=== PATIENT | female | born 1965 | race Caucasian/White ===

== ENCOUNTER 2017-09-16 09:44 | Emergency (ER) | payer MEDICAID ==
[2017-09-16 10:04] VITALS: BP 116/65
--- NOTE | 2017-09-16 10:37 | ED Physician Documentation ---
PD HPI HEENT FB - Chief complaint Chief Complaint: General - History obtained from History obtained from: Patient - History of Present Illness Timing - onset: Today Location: Left ear Associated symptoms: No: Fever, Congestion Similar symptoms before: Has not had sx before Recently seen: Not recently seen - Additional information Additional information: 51-year-old female that wears hearing aids has had the tip of the hearing aid stuck in her ear on the left side. She was not able to remove this herself and felt that she was pushing it further in so she has come to the emergency department. Review of Systems Constitutional: denies: Fever, Chills Eyes: denies: Decreased vision Ears: reports: Foreign body Nose: denies: Rhinorrhea / runny nose, Congestion Throat: denies: Sore throat Respiratory: denies: Cough PD PAST MEDICAL HISTORY - Past Medical History Past Medical History: No - Past Surgical History Past Surgical History: No - Present Medications Home Medications: Ambulatory Orders Medication Instructions Recorded Confirmed Gabapentin 100 mg PO 09/16/17 - Allergies Allergies/Adverse Reactions: Allergies Allergy/AdvReac Type Severity Reaction Status Date / Time No Known Drug Allergies Allergy Verified 09/16/17 10:02 - Social History Does the pt smoke?: No Smoking Status: Never smoker Does the pt drink ETOH?: Yes Substance Use and Type: Marijuana PD ED PE NORMAL - Vitals Vital signs reviewed: Yes (normal ) - General General: Alert and oriented X 3, No acute distress, Well developed/nourished - HEENT HEENT: Atraumatic, PERRL, EOMI, Ears normal, Other (There is a tiny rubber tip to the hearing aid in the left canal and this is removed with magnification and foreceps. ) - Neck Neck: Supple, no meningeal sign, No bony TTP - Respiratory Respiratory: No respiratory distress - Derm Derm: Normal color, Warm and dry, No rash - Extremities Extremities: No deformity, No edema - Neuro Neuro: No motor deficit, No sensory deficit Eye Opening: Spontaneous Motor: Obeys Commands Verbal: Oriented GCS Score: 15 - Psych Psych: Normal mood, Normal affect Results - Vitals Vitals: Vital Signs - 24 hr 09/16/17 10:00 Temperature 36.8 C Heart Rate 84 Respiratory 18 Rate Blood Pressure 116/65 O2 Saturation 98 Oxygen O2 Source Room air Procedures - FB removal FB location: Ear Removal method: Foreceps FB removal aftercare: No complications, Patient tolerated well, Removed successfully PD MEDICAL DECISION MAKING - ED course Complexity details: considered differential, d/w patient ED course: 51 y/o female with FB in the ear is removed. Departure - Departure Disposition: 01 Home, Self Care Clinical Impression: Foreign body in left ear Qualifiers: Encounter type: initial encounter Qualified Code(s): T16.2XXA - Foreign body in left ear, initial encounter Instructions: ED Foreign Body Ear Canal [facility] [Provider Group]
== END 2017-09-16 10:41 | disposition home or self-care (01) ==
LOC: ED 09:44
DX: T16.2XXA Foreign body in left ear, initial encounter (principal); X58.XXXA Exposure to other specified factors, initial encounter
CPT/HCPCS: 69200; 99282

== ENCOUNTER 2022-12-08 11:47 | Outpatient (CLI) | payer BC ==
--- NOTE | 2022-12-08 17:58 | Ultrasound Report ---
PROCEDURE: Ankle Brachial Index INDICATIONS: PVD W/RAYNAUDS TECHNIQUE: Ankle-brachial indices were obtained bilaterally and recorded. COMPARISONS: None. FINDINGS: Right ankle brachial index (DELONTE): 1.0 Left ankle brachial index (DELONTE): 1.0 Healing potential: Ankle pressures >55 mm Hg in non-diabetics and >80 mm Hg in diabetics are likely to achieve primary h ealing of ischemic foot ulcers. Toe pressures >30 mm Hg are likely to achieve primary healing of ischemic foot ulcers, toe or transme tatarsal amputations. IMPRESSION: Normal bilateral ankle-brachial indices. Reviewed by: Haroon Hilliard MD on 12/08/2022 5:57 PM PDT Approved by: Haroon Hilliard MD on 12/08/2022 5:57 PM PDT Station ID: [id number]
== END 2022-12-08 11:48 | disposition home or self-care (01) ==
LOC: DI 11:47
PROVIDERS: ATTEND Naturopath
DX: R20.8 Other disturbances of skin sensation (principal); I73.9 Peripheral vascular disease, unspecified
CPT/HCPCS: 93922

== ENCOUNTER 2022-12-08 11:48 | Outpatient (CLI) | payer BC ==
--- NOTE | 2022-12-08 20:28 | Ultrasound Report ---
PROCEDURE: Carotid Doppler Complete INDICATIONS: SCREENING FOR CARDIOVASCULAR DISORDERS TECHNIQUE: Color and pulse Doppler interrogation was performed of both carotid systems, with image documentation and velocity measurements. COMPARISON: None. FINDINGS: Right side: Brachial blood pressure: 153/74 mm Hg. Common carotid artery peak systolic velocity: 80 cm/sec. Internal carotid artery peak systolic velocity: 142 cm/sec. Internal carotid artery end diastolic velocity: 60 cm/sec. External carotid artery peak systolic velocity: 74 cm/sec. ICA/CCA peak systolic ratio: 1.7 . Love scale imaging description: Mild atherosclerotic plaque. Percent internal carotid artery stenosis: 50-69%. Vertebral artery: Flow direction is antegrade. Left side: Brachial blood pressure: 144/75 mm Hg. Common carotid artery peak systolic velocity: 70 cm/sec. Internal carotid artery peak systolic velocity: 116 cm/sec. Internal carotid artery end diastolic velocity: 60 cm/sec. External carotid artery peak systolic velocity: 68 cm/sec. ICA/CCA peak systolic ratio: 1.6 . Love scale imaging description: No significant atherosclerotic plaque. Percent internal carotid artery stenosis: No hemodynamically significant stenosis. Vertebral artery: Flow direction is antegrade. IMPRESSION: 1. In the right internal carotid artery, there is 50-69 percent stenosis based on peak systolic veloc ity criteria. 2. In the left internal carotid artery, there is no hemodynamically significant stenosis based on pea k systolic velocity criteria. 3. Antegrade blood flow within the right vertebral artery. 4. Antegrade blood flow within the left vertebral artery. The estimate of stenosis included in the report of the imaging study was calculated using the [facility]-end orsed standards of carotid artery stenosis. Reviewed by: Cheikh Sandoval MD on 12/08/2022 8:27 PM PDT Approved by: Cheikh Sandoval MD on 12/08/2022 8:27 PM PDT Station ID: [id number]
== END 2022-12-08 11:49 | disposition home or self-care (01) ==
LOC: DI 11:48
PROVIDERS: ATTEND Naturopath
DX: Z13.6 Encounter for screening for cardiovascular disorders (principal); I65.21 Occlusion and stenosis of right carotid artery; R20.8 Other disturbances of skin sensation; I73.9 Peripheral vascular disease, unspecified
CPT/HCPCS: 93880; 93922

== ENCOUNTER 2022-12-14 10:12 | Outpatient (CLI) | payer BC ==
[2022-12-14 16:00] LABS: RHEUMATOID FACTOR NEGATIVE (Negative)
[2022-12-14 16:02] LABS: CRP - C-REACTIVE PROTEIN 0.9 mg/dL (<0.5); URIC ACID 3.9 mg/dL (2.3-6.6)
[2022-12-14 16:27] LABS: FERRITIN 46.4 ng/mL (11.0-306.8)
[2022-12-16 15:09] LABS: A/G RATIO 1.2 (0.7-1.7); ALBUMIN 3.7 g/dL (2.9-4.4); ALPHA-1-GLOBULIN 0.2 g/dL (0.0-0.4); ALPHA-2-GLOBULIN 0.7 g/dL (0.4-1.0); GAMMA GLOBULIN 1.3 g/dL (0.4-1.8); GLOBULIN TOTAL 3.2 g/dL (2.2-3.9); IMMUNOGLOBULIN A (IGA) 232 mg/dL (87-352); IMMUNOGLOBULIN G (IGG) 1163 mg/dL (586-1602); IMMUNOGLOBULIN M (IGM) 181 mg/dL (26-217); M-SPIKE Not Observed g/dL (Not Observed); PROTEIN TOTAL 6.9 g/dL (6.0-8.5)
[2022-12-17 02:08] LABS: METHYLMALONIC ACID SERUM 80 nmol/L (0-378)
== END 2022-12-14 10:13 | disposition home or self-care (01) ==
LOC: LAB.S 10:12
PROVIDERS: ATTEND Internal Medicine
DX: G62.9 Polyneuropathy, unspecified (principal)
CPT/HCPCS: 36415; 82607; 82728; 82784; 83090; 83540; 83921; 84155; 84165; 84207; 84466; 84550; 86140; 86200; 86334; 86430

== ENCOUNTER 2022-12-15 06:00 | Outpatient (CLI) | payer BC | END 2022-12-15 23:59 | disposition home or self-care (01) | LOC: LAB 06:00 | PROVIDERS: ATTEND Internal Medicine | DX: G62.9 Polyneuropathy, unspecified (principal) | CPT/HCPCS: 81599; 84156; 84166 ==

== ENCOUNTER 2023-01-17 12:56 | Outpatient (CLI) | payer BC ==
--- NOTE | 2023-01-17 18:30 | XRAY Report ---
PROCEDURE: Chest 2 View X-Ray INDICATIONS: DYSPNEA TECHNIQUE: 2 views of the chest were obtained. COMPARISON: None. FINDINGS: Surgical changes and devices: None. Lungs and pleura: There is hyperinflation and chronic interstitial changes without focal infiltrate, pneumothorax or pleural effusion. Mediastinum: Mediastinal contours appear normal. Heart size is normal. Bones and chest wall: No suspicious bony lesions. Overlying soft tissues appear unremarkable. IMPRESSION: Hyperinflation and chronic interstitial changes Reviewed by: Chapo Awan MD on 01/17/2023 5:29 PM AKDT Approved by: Chapo Awan MD on 01/17/2023 5:29 PM AKDT Station ID: [id number]
== END 2023-01-17 12:57 | disposition home or self-care (01) ==
LOC: DI 12:56
PROVIDERS: ATTEND Internal Medicine
DX: R06.09 Other forms of dyspnea (principal)

== ENCOUNTER 2023-02-07 10:04 | Outpatient (CLI) | payer BC ==
--- NOTE | 2023-02-07 12:34 | CT Report ---
PROCEDURE: CHEST WO INDICATIONS: EXERTIONAL DYSPNEA, VASCULAR DISEASE TECHNIQUE: Noncontrast 1mm axial images were acquired from the pulmonary apices to the posterior costophrenic an gles. Axial 5 mm soft tissue kernel reconstructions were performed as well as 8 mm axial MIP and cor onal and sagittal 5 mm reformations. For radiation dose reduction, the following was used: automate d exposure control, adjustment of mA and/or kV according to patient size. COMPARISON: X-ray 01/17/2023 FINDINGS: Image quality: Excellent. Lungs and pleura: No consolidation. No pleural effusions. No pneumothorax. Biapical scarring. Bronch iectasis of the right middle lobe, with regions of mucus impaction. Additional mucus impaction of the upper lobe subsegmental bronchi, without bronchiectasis. No fibrosis. No honeycombing. No definite a ir trapping. Mediastinum: Heart size is normal. No pericardial effusion. No large vessel abnormality. No mediastin al adenopathy by size criteria. Chest wall and lower neck: No thyroid nodule which requires sonographic follow up. No axillary or sup raclavicular adenopathy by size. Bones: No aggressive osseous abnormality. Upper Abdomen: Unremarkable. IMPRESSION: Bronchiectasis of the right middle lobe, with regions of mucus impaction. Additional subsegmental muc us impaction of the upper lobes. Findings are suggestive of infectious or inflammatory bronchiolitis. Non-tuberculosis mycobacterium is also a consideration if chronic. No evidence of interstitial lung disease. Reviewed by: Damien Solis on 02/07/2023 12:33 PM PDT Approved by: Damien Solis on 02/07/2023 12:33 PM PDT Station ID: [id number]
== END 2023-02-07 10:05 | disposition home or self-care (01) ==
LOC: DI 10:04
PROVIDERS: ATTEND Internal Medicine
DX: J47.9 Bronchiectasis, uncomplicated (principal); J98.09 Other diseases of bronchus, not elsewhere classified

== ENCOUNTER 2023-03-06 14:01 | Outpatient (CLI) | payer BC ==
--- NOTE | 2023-03-14 09:26 | Mammography Report ---
BILATERAL DIGITAL SCREENING MAMMOGRAM 3D/2D WITH EXAGGERATED CC: 03/06/2023 CLINICAL: Routine screening. No prior exams were available for comparison. Both breasts are heterogeneously dense, which may obscure small masses (category c / 51-75% glandular tissue). There is a benign lymph node in the left breast. There also is a biopsy clip in the left breast. No significant masses, calcifications, or other findings are seen in either breast. IMPRESSION: BENIGN There is no mammographic evidence of malignancy. A 1 year screening mammogram is recommended. Based on the Tyrer Cuzick model (a risk assessment model) the patients lifetime risk is 9.5% and her 10 year risk is 3.2%. According to the ACR, ACS, and NCCN guidelines, an annual breast MRI exam rand g with mammogram is recommended if the patients lifetime risk is 20% or greater. This exam was interpreted at Station ID: [id number]. NOTE: For mammograms, a report in lay terms will be sent to the patient. Approximately 15% of breast malignancies will not be visualized mammographically. In the management of a palpable breast mass, a negative mammogram must not discourage biopsy of a clinically suspicious lesion. Electronically Signed By: John mojica/penrad:03/14/2023 08:06:28 ACR BI-RADS Category 2: Benign Finding(s) 3342F PARENCHYMAL PATTERN: (D) - The breast(s) demonstrate(s) heterogeneously dense fibroglandular [place]. BI-RADS CATEGORY: (2) - 2 Mammogram [id number] 1 year screening LATERALITY: (B)
== END 2023-03-06 14:02 | disposition home or self-care (01) ==
LOC: DI.S 14:01
DX: Z12.31 Encounter for screening mammogram for malignant neoplasm of breast (principal); R92.333 Mammographic heterogeneous density, bilateral breasts

== ENCOUNTER 2023-03-20 13:41 | Outpatient (CLI) | payer BC ==
[2023-03-20] MEDS: ALBUTEROL 1 PUFF INH STA (18:24)
[2023-03-20 18:30] LABS: MAGNESIUM 2.1 mg/dL (1.7-2.3); PHOSPHORUS 4.1 mg/dL (2.5-5.0)
== END 2023-03-20 13:42 | disposition home or self-care (01) ==
LOC: RT 13:41
PROVIDERS: ATTEND Internal Medicine
DX: J47.9 Bronchiectasis, uncomplicated (principal); R91.8 Other nonspecific abnormal finding of lung field; R06.09 Other forms of dyspnea; R29.898 Other symptoms and signs involving the musculoskeletal system; R53.83 Other fatigue; R20.2 Paresthesia of skin
CPT/HCPCS: 36415; 81599; 82085; 82550; 83735; 84100; 94060; 94727; 94729

== ENCOUNTER 2023-06-07 17:02 | Outpatient (CLI) | payer OTHER ==
--- NOTE | 2023-06-08 08:41 | Ultrasound Report ---
PROCEDURE: Carotid Doppler Complete INDICATIONS: INTERNAL CAROTID STENOSIS TECHNIQUE: Color and pulse Doppler interrogation was performed of both carotid systems, with image documentation and velocity measurements. COMPARISON: 12/08/2022 FINDINGS: Right side: Brachial blood pressure: 135/63 mm Hg. Common carotid artery peak systolic velocity: 81 cm/sec. Internal carotid artery peak systolic velocity: 105 cm/sec. Internal carotid artery end diastolic velocity: 42 cm/sec. External carotid artery peak systolic velocity: 60 cm/sec. ICA/CCA peak systolic ratio: 1.3 . Love scale imaging description: Mild atherosclerotic plaques Percent internal carotid artery stenosis: Less than 50 percent stenosis. Vertebral artery: Flow direction is antegrade. Left side: Brachial blood pressure: 126/47 mm Hg. Common carotid artery peak systolic velocity: 83 cm/sec. Internal carotid artery peak systolic velocity: 68 cm/sec. Internal carotid artery end diastolic velocity: 21 cm/sec. External carotid artery peak systolic velocity: 67 cm/sec. ICA/CCA peak systolic ratio: .8 . Love scale imaging description: No significant atherosclerotic plaque. Percent internal carotid artery stenosis: No hemodynamically significant stenosis. Vertebral artery: Flow direction is antegrade. IMPRESSION: 1. In the right internal carotid artery, there is less than 50 percent stenosis based on peak systoli c velocity criteria. 2. In the left internal carotid artery, there is no hemodynamically significant stenosis based on pea k systolic velocity criteria. 3. Antegrade blood flow within the right vertebral artery. 4. Antegrade blood flow within the left vertebral artery. The estimate of stenosis included in the report of the imaging study was calculated using the [facility]-end orsed standards of carotid artery stenosis. Reviewed by: Delroy Morillo MD on 06/08/2023 8:39 AM PST Approved by: Delroy Morillo MD on 06/08/2023 8:39 AM PST Station ID: [id number]
== END 2023-06-07 17:03 | disposition home or self-care (01) ==
LOC: DI 17:02
PROVIDERS: ATTEND Internal Medicine
DX: I65.21 Occlusion and stenosis of right carotid artery (principal); J47.9 Bronchiectasis, uncomplicated
CPT/HCPCS: 81599; 93880

== ENCOUNTER 2023-07-28 14:50 | Outpatient (CLI) | payer OTHER ==
[2023-07-28 20:31] LABS: CALCIUM 9.7 mg/dL (8.5-10.3); CREATININE 0.8 mg/dL (0.6-1.3); POTASSIUM 4.3 mmol/L (3.5-4.5)
== END 2023-07-28 14:51 | disposition home or self-care (01) ==
LOC: LAB.S 14:50
PROVIDERS: ATTEND Emergency Medicine
DX: U07.1 COVID-19 (principal)
CPT/HCPCS: 36415; 80048